=== PATIENT | male | born 1935 ===

== ENCOUNTER 2017-02-25 10:30 | Day surgery (SDC) | payer MEDICARE, OTHER ==
[2017-02-25] VITALS (10 sets, daily range): BP systolic 118–144; BP diastolic 59–78
[~2017-02-25] VITALS: Ht 167.6 cm; Wt 66.2 kg
--- NOTE | 2017-02-25 08:45 | Pre-op HX & Phy Repo 2 SIG ---
DATE OF ADMISSION: 02/25/2017 Date of surgery is scheduled for 02/25/2017. History Of Present Illness: The patient is a pleasant 81-year-old gentleman initially evaluated in 11/2015. He was noted to have a macular pucker in the right eye at that time. Visual acuity was 20/70. I had recommended surgery at that time, but he had other commitments and chose to defer surgery. He came to me again in 08/2016, stating he wished to have surgery in the fall. He saw me on 02/16/2017 and his macular pucker had showed some progression in the right eye. He is now being admitted for pars plana vitrectomy with membrane peel to the right eye. Past Medical History: Remarkable for prostate disease and hypercholesterolemia. MEDICATIONS: Lovastatin. ALLERGIES: He has no known drug allergies. Social History: Notable for previous history of tobacco use. He drinks socially. REVIEW OF SYSTEMS: Unremarkable. PHYSICAL EXAMINATION: Eyes: On examination, visual acuity is 20/80 in the right eye pinhole 20/60 and 20/25 in the left eye. Intraocular pressure is 17 mmHg in the right eye and 14 mmHg in the left eye. External examination and neck are within normal limits. Anterior segment examination of both eyes demonstrates the cornea is clear. The anterior chamber is quiet posterior chamber intraocular lens in the right eye with posterior capsule opacity in the left eye. The posterior chamber intraocular lens 01:40 within intact capsule. Dilated vitreoretinal examination of the right eye demonstrates clear media. The cup-to-disc ratio was 0.2. There was posterior vitreous detachment present. There is an epiretinal membrane and macular edema present with some drusen and RPE changes around the periphery. Left eye media is clear. The cup-to-disc ratio was 0.2. There is some drusen and RPE changes in the macula. Diagnostic Data: CT demonstrates an epiretinal membrane in the right eye. IMPRESSION: 1. Macular pucker, right eye. 2. History of branch retinal vein occlusion, right eye. Plan: I discussed my findings with the patient. The pucker is likely related to the previous branch retinal vein occlusion. I discussed risks, benefits, and alternatives, including possible hemorrhage, infection, loss of vision, loss of eye, retinal detachment, ptosis, glaucoma, or strabismus. He understands and agrees to the surgery. Jaxson Latham M.D. DR: ALLEN JOB#: [id number] CC:
[~2017-02-25 10:30] MED LIST: POLYTRIM OPTH RIGHT EYE SCH; Vigamox Opth Soln 3ml RIGHT EYE SCH
[2017-02-25] MEDS ORDERED: Tetracaine 0.5% Opth 4ml Soln ONE (10:38)
[2017-02-25] MEDS ORDERED: Dexamethasone 4mg/ml vial ONE (10:38)
[2017-02-25] MEDS ORDERED: BSS 500ml btl ONE (10:38)
[2017-02-25] MEDS ORDERED: Goniosol 2.5% Opth Soln - 15ml ONE (10:39)
[2017-02-25] MEDS ORDERED: Bupivacaine 0.75% 30ml vial INJ ONE (10:39)
[2017-02-25] MEDS ORDERED: Lidocaine 4% Amp ONE (10:39)
[2017-02-25] MEDS ORDERED: EPINEPHrine 1mg/1ml Amp ONE (10:39)
[2017-02-25] MEDS ORDERED: Povidone-Iodine 5% opth solution ONE (10:39)
[2017-02-25] MEDS ORDERED: BSS 15ml BTL ONE (10:39)
[2017-02-25] MEDS ORDERED: Indocyanine Green 25mg Inj INJ ONE (10:45)
[2017-02-25] MEDS ORDERED: Phenylephrine 2.5% Op 2ml Soln ONE (10:50)
[2017-02-25] MEDS ORDERED: Tropicamide 1% Opth 15ml Soln ONE (10:50)
[2017-02-25] MEDS ORDERED: Cyclopentolate 1% Opth Sol 2ml ONE (10:50)
[2017-02-25] MEDS: Phenylephrine 2.5% Op 2ml Soln RIGHT EYE SCH ×3 (11:04→11:17)
[2017-02-25] MEDS: Cyclopentolate 1% Opth Sol 2ml RIGHT EYE SCH ×3 (11:04→11:17)
[2017-02-25] MEDS: Tropicamide 1% Opth 15ml Soln RIGHT EYE SCH ×3 (11:04→11:17)
[2017-02-25] MEDS ORDERED: ASPIR 8181 MG ORAL (11:08)
[2017-02-25] MEDS ORDERED: LOVASTATIN20 MG ORAL (11:08)
[2017-02-25] MEDS ORDERED: PANTOPRAZOLE SO40 MG ORAL (11:09)
[2017-02-25] MEDS ORDERED: LR 1000ml 1,000 ML IVLG SCH (11:57)
--- NOTE | 2017-02-25 11:57 | Anethesia Preoperative Eval ---
Anesthesia Pre-op PMH/ROS General Date of Evaluation: Feb 25, 2017 Time of Evaluation: 12:01 Anesthesiologist: Mckenna ASA Score: ASA 3 Mallampati Score Class I : Soft palate, uvula, fauces, pillars visible Class II: Soft palate, uvula, fauces visible Class III: Soft palate, base of uvula visible Class IV: Only hard plate visible Mallampati Classification: Class II Surgeon: Yieson Diagnosis: Macular Pucker, OD Surgical Procedure: Vitrectomy OD Anesthesia History: none Family History: no anesthesia problems Allergies: Coded Allergies: LEVOFLOXACIN (Verified Allergy, Severe, Rash, 02/24/17) Medications: see eMAR Past Medical History Cardiovascular: Reports: other - HL Pulmonary: Reports: other - Pneumonia Gastrointestinal/Genitourinary: Reports: GERD HEENT: Reports: cataract (L), cataract (R), other - Macular Pucker, Bilateral Anesthesia Pre-op Phys. Exam Physician Exam Last Vital Signs Date Time Temp Pulse Resp B/P (MAP) Pulse Ox O2 Delivery O2 Flow Rate FiO2 02/25/17 11:16 97.5 64 20 134/76 98 Room Air Constitutional: NAD Neurologic: CN 2-12 intact Cardiovascular: RRR Respiratory: CTA Gastrointestinal: S/NT/ND Airway Exam Mallampati Score: Class II MO: limited ROM: limited Teeth: intact Anesthesia Pre-op A/P Risk Assessment & Plan Assessment: ASA 3 Plan: GA Status Change Before Surgery: Reyes Posadas MD Feb 25, 2017 11:57
--- NOTE | 2017-02-25 11:58 | Immediate Post-Op Evaluation ---
Immediate Post-Op Evalulation Immediate Post-Op Evalulation Procedure: Vitrectomy OD Date of Evaluation: Feb 25, 2017 Time of Evaluation: 13:13 IV Fluids: 300 LR Blood Products: 0 Estimated Blood Loss: 1 Urinary Output: 0 Blood Pressure Systolic: 127 Blood Pressure Diastolic: 76 Pulse Rate: 59 Respiratory Rate: 16 O2 Sat by Pulse Oximetry: 98 Temperature (Fahrenheit): 97.7 Pain Score (1-10): 1 Nausea: No Vomiting: No Complications 0 Patient Status: awake, reacts, patent, none Hydration Status: adequate Reyes Andres MD Feb 25, 2017 11:58
--- NOTE | 2017-02-25 11:59 | 48 Hour Post Anesthesia Eval ---
Post Anesthesia Evaluation Procedure: Vitrectomy OD Date of Evaluation: Feb 25, 2017 Time of Evaluation: 15:23 Blood Pressure Systolic: 132 0: 68 Pulse Rate: 64 Respiratory Rate: 18 Temperature (Fahrenheit): 98.2 O2 Sat by Pulse Oximetry: 98 Airway: patent Nausea: No Vomiting: No Pain Intensity: 1 Hydration Status: adequate Cardiopulmonary Status: Stable Mental Status/LOC: patient returned to baseline Follow-up Care/Observations: 0 Post-Anesthesia Complications: 0 Follow-up care needed: ready to discharge Reyes Andres MD Feb 25, 2017 11:59
[2017-02-25] MEDS ORDERED: Meperidine 25mg/0.5ml Inj (FOR RIGORS ONLY) IV PRN (12:00)
[2017-02-25] MEDS ORDERED: Metoclopramide 10mg/2ml Inj IVP PRN (12:00)
[2017-02-25] MEDS ORDERED: fentaNYL 100 mcg/2 mL IV PRN (12:00)
[2017-02-25] MEDS ORDERED: Midazolam 2mg/2ml Inj IVP PRN (12:00)
[2017-02-25] MEDS ORDERED: Atropine Inj 1mg/10ml Syr IV PRN (12:00)
[2017-02-25] MEDS ORDERED: Norco 7.5mg/325mg tab ORAL PRN (12:00)
[2017-02-25] MEDS ORDERED: Lidocaine 1% MPF 10mg/ml 5ml ONE (12:00)
[2017-02-25] MEDS ORDERED: DiphenhydrAMINE 50mg/ml Inj IVP PRN (12:00)
[2017-02-25] MEDS ORDERED: NS Irrig 1000ml ONE (12:00)
[2017-02-25] MEDS ORDERED: Hydromorphone 0.5mg/0.5ml inj IVP PRN (12:00)
[2017-02-25] MEDS ORDERED: Sterile Water Irrig 1000ml IRRIG ONE (12:00)
[2017-02-25] MEDS ORDERED: Ketorolac 60mg Inj IV PRN (12:00)
[2017-02-25] MEDS ORDERED: Alfentanil 2ml Inj ONE (12:00)
[2017-02-25] MEDS ORDERED: Midazolam 2mg/2ml Inj ONE (12:00)
[2017-02-25] MEDS ORDERED: LR 1000ml ONE (12:00)
[2017-02-25] MEDS ORDERED: oxyCODONE HCL/Acetaminophen 5/325mg ORAL PRN (12:00)
[2017-02-25] MEDS ORDERED: Propofol 200mg/20ml IV ONE (12:00)
[2017-02-25] MEDS ORDERED: LORazepam Inj 2mg/ml 1ml IV PRN (12:00)
[2017-02-25] MEDS ORDERED: Norco 5mg/325mg tab ORAL PRN (12:00)
[2017-02-25] MEDS ORDERED: Ketorolac 30mg Inj IV PRN (12:00)
--- NOTE | 2017-02-25 12:16 | Pre-Procedure Note/Attestation ---
Pre-Procedure Note/Attestation Complete Prior to Procedure Planned Procedure: right Procedure Narrative: right pars plana vitrectomy with membrane peel Indications for Procedure Pre-Operative Diagnosis: macular pucker od Attestation I attest that I discussed the nature of the procedure; its benefits; risks and complications; and alternatives (and the risks and benefits of such alternatives ), prior to the procedure, with the patient (or the patient's legal vaccine customer representative). I attest that, if there was a reasonable possibility of needing a blood transfusion, the patient (or the patient's legal vaccine customer representative) was given the [facility] standardized written summary, pursuant to the Oscar Francesco Blood Safety Act ([place] Health and Safety Code # 1645, as amended). I attest that I re-evaluated the patient just prior to the surgery and that there has been no change in the patient's H&P, except as documented below: Jaxson Latham MD Feb 25, 2017 12:16
--- NOTE | 2017-02-25 12:59 | Brief Operative Note ---
Immediate Post Operative Note Operative Note Pre-op Diagnosis: macular pucker od Procedure: pars plana vitrectomy with membrane peel (internal limiting membrane) OD Post-op Diagnosis: same Post-op Diagnosis: same as pre-op Surgeon: Yeison C Engineer: Aly Anesthesia: MAC Specimen: none Complications: none Condition: stable Fluids: nono Estimated Blood Loss: none Drains: none Implant(s) used?: No Jaxson Latham MD Feb 25, 2017 12:59
--- NOTE | 2017-02-25 21:45 | Operative Note - Dictated ---
DATE OF OPERATION: 02/25/2017 PREOPERATIVE DIAGNOSIS: Macular pucker, right eye. POSTOPERATIVE DIAGNOSIS: Macular pucker, right eye. Procedure: Pars plana vitrectomy with membrane peel including internal limiting membrane peel, right eye. SURGEON: Jaxson Latham M.D. MANAGER OF EXHIBITIONS AND COLLECTIONS: Jose Manuel Lu M.D. Anesthesia: Local (4% lidocaine and 0.75% bupivacaine) via retrobulbar injection. COMPLICATIONS: None. Description Of Procedure: After informed consent was obtained, clearance by Anesthesia, and identification by Dr. Latham, the patient was brought to the operating room where he received his anesthetic injection and the right eye was prepped and draped in usual sterile ophthalmic fashion. A wire lid speculum was placed in the conjunctiva fornices and a 3-port 25-gauge vitrectomy was created in this pseudophakic patient with trocars and cannulas placed 3 mm posterior to the surgical limbus supratemporally, superonasally, and inferotemporally. Once the infusion cannula was noted to be inside the eye, infusion was turned on. The cortical vitreous then removed from the posterior surface of the lens to the surface of the retina. The vitreous was excised to the vitreous base with a preretinal membrane noted along the surface of the retina. A 0.05 mL of indocyanine green dye was injected into the eye and allowed to sit for approximately 1 minute, at which point it was aspirated. At this point, the internal limiting membrane and epiretinal membrane were stained and were engaged using intraocular forceps. The internal limiting membrane was also removed with forceps. The eye was examined using scleral depression. No holes or tears noted in the periphery. The trocar and cannulas were then removed. The wounds were noted to be watertight. Subconjunctival cefazolin, Decadron, and topical atropine drops were placed in the eye, which was patched and shielded. The patient left the operating room in stable condition. Jaxson Latham M.D. DR: TRAVIS JOB#: [id number] CC:
== END 2017-02-25 14:20 | disposition home or self-care (01) ==
LOC: SUR 10:30
DX: H35.371 Puckering of macula, right eye (principal); K21.9 Gastro-esophageal reflux disease without esophagitis; M19.012 Primary osteoarthritis, left shoulder; M19.011 Primary osteoarthritis, right shoulder; Z88.8 Allergy status to other drugs, medicaments and biological substances; E78.5 Hyperlipidemia, unspecified; Z80.9 Family history of malignant neoplasm, unspecified; L98.9 Disorder of the skin and subcutaneous tissue, unspecified; Z79.82 Long term (current) use of aspirin; I45.10 Unspecified right bundle-branch block
CPT/HCPCS: 67041; J0171; J0690; J1100; J2250; J2704; J3470; J3490; J7120; 94003; 94150